=== PATIENT | female | born 1985 | race Caucasian/White ===

== ENCOUNTER 2021-04-01 14:57 | Emergency (ER) | payer OTHER ==
[~2021-04-01] VITALS: Ht 160 cm; Wt 51.3 kg
[2021-04-01 15:04] VITALS: BP 120/93
[2021-04-01] MEDS ORDERED: DICYCLOMINE HCL LIQUID 10 MG/5 ML UDC ONE (15:20)
[2021-04-01] MEDS ORDERED: ALUMINUM HYD/MAG/SIMETHICONE 30 ML UDC ONE (15:20)
[2021-04-01] MEDS ORDERED: LIDOCAINE VISCOUS 2% 20 ML UDC ONE (15:20)
[2021-04-01] MEDS: ONDANSETRON 4 MG ODT PO ONE (15:21)
[2021-04-01] MEDS: DICYCLOMINE HCL LIQUID 20 MG, ALUMINUM HYD/MAG/SIMETHICONE 30 ML, LIDOCAINE VISCOUS 2% ... PO ONE ×3 (15:22)
[2021-04-01] MEDS ORDERED: LOPE-289 PO (15:52)
[2021-04-01] MEDS ORDERED: CIPR500T4 PO (15:52)
[2021-04-01] MEDS ORDERED: ONDA8TAB87 PO (15:52)
[2021-04-01] MEDS ORDERED: IBUP-2213 PO (15:52)
[2021-04-01 16:00] VITALS: BP 120/93
== END 2021-04-01 16:00 | disposition home or self-care (01) ==
LOC: MED 14:57
DX: R10.13 Epigastric pain (principal); R19.7 Diarrhea, unspecified; R11.2 Nausea with vomiting, unspecified; Z91.013 Allergy to seafood
CPT/HCPCS: 81002; 81025; 99283; Q0162

== ENCOUNTER 2022-10-26 14:35 | Emergency (ER) | payer OTHER ==
[~2022-10-26] VITALS: Ht 157.5 cm; Wt 59.0 kg
[~2022-10-26 14:35] MED LIST: CIPR500T4 PO; IBUP-2213 PO; LOPE-289 PO; ONDA8TAB87 PO
[2022-10-26 14:37] VITALS: BP 110/82
[2022-10-26] MEDS ORDERED: ONDANSETRON 4 MG ODT PO ONE (14:40)
[2022-10-26] MEDS ORDERED: ACETAMINOPHEN 325 MG TAB PO ONE (14:40)
--- NOTE | 2022-10-26 14:45 | NUR ---
PT SWABBED AND SENT TO LAB
[2022-10-26] MEDS ORDERED: ONDA-188 SL (15:27)
[2022-10-26] MEDS ORDERED: BPM/118S31 PO (15:27)
[2022-10-26] MEDS ORDERED: IBUP-1842 PO (15:27)
--- NOTE | 2022-10-26 15:37 | NUR ---
Patient discharged with v/s stable. Written and verbal after care instructions given and explained. Patient verbalized understanding. All questions addressed prior to discharge. Advised to follow up with PMD.
[2022-10-26] MEDS ORDERED: TAM75 PO (16:25)
== END 2022-10-26 15:37 | disposition home or self-care (01) ==
LOC: MED 14:35
DX: J10.1 Influenza due to other identified influenza virus with other respiratory manifestations (principal); Z20.822 Contact with and (suspected) exposure to COVID-19; Z79.899 Other long term (current) drug therapy; Z98.890 Other specified postprocedural states
CPT/HCPCS: 87426; 87804; 99283; Q0162